=== PATIENT | female | born 1985 | race Caucasian/White ===

== ENCOUNTER 2017-12-23 10:21 | Emergency (ER) | payer MEDICAID ==
[~2017-12-23] VITALS: Ht 157.5 cm; Wt 92.0 kg
[2017-12-23 10:31] VITALS: BP 120/71; PULSE 66; RESP 18; TEMP 98.4; O2SAT 100
--- NOTE | 2017-12-23 10:55 | PD ---
HPI Chief Complaint: Musculoskeletal Complaint Time Seen by Provider: 10:36 Travel History International Travel<30 days: No Contact w/Intl Traveler<30days: No Traveled to known affect area: No History of Present Illness HPI 32-year-old female presents to the emergency department with complaint of left shoulder pain 2 weeks after falling on it. She did not fall on an outstretched arm. She fell directly on her shoulder, injuring it. Denies loss of sensation, decreased range of motion, decreased strength, paresthesias to the affected extremity. Denies fever, vomiting. Pain is worse at night and with certain movements. It is better throughout the day. Rates pain 5/10. Has been taking ibuprofen with good relief of symptoms for symptom management. Describes it as a "pinched nerve" sensation. Allergies to penicillin. No primary care provider. Denies significant past medical history. Has no other medical complaints. No other modifying factors or associated signs and symptoms. PFSH Past Medical History ?: Not Social History Alcohol Use: No Tobacco Use: No Substance Use: No Allergies-Medications (Allergen,Severity, Reaction): Coded Allergies: Penicillins (Verified Allergy, Unknown, 12/23/17) Reported Meds & Prescriptions Reported Meds & Active Scripts Active No Active Prescriptions or Reported Medications Review of Systems Except as stated in HPI: all other systems reviewed are Neg Physical Exam Narrative GENERAL: Well-nourished, well-developed female patient, in no acute distress SKIN: Warm and dry. HEAD: Atraumatic. Normocephalic. EYES: Pupils equal and round. No scleral icterus. No injection or drainage. ENT: Mucosa pink and moist. Airway patent. NECK: Supple. Trachea midline. CARDIOVASCULAR: Regular rate. RESPIRATORY: No accessory muscle use GASTROINTESTINAL: Rounded. MUSCULOSKELETAL: No obvious deformities. No clubbing. No cyanosis. No edema. 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 5/5 strength. Left upper extremity supple and non-tense. 2+ radial pulse and sensory intact. NEUROLOGICAL: Awake and alert. Oriented 3. No obvious cranial nerve deficits. Motor grossly within normal limits. Normal speech. PSYCHIATRIC: Appropriate mood and affect; insight and judgment normal. Data Data Last Documented VS Vital Signs Date Time Temp Pulse Resp B/P (MAP) Pulse Ox O2 Delivery O2 Flow Rate FiO2 12/23/17 10:31 98.4 66 18 120/71 (87) 100 Room Air Orders Orders Shoulder, Complete (>2vws) (12/23/17 10:41) Ed Discharge Order (12/23/17 11:36) MDM Medical Decision Making Medical Screen Exam Complete: Yes Emergency Medical Condition: Yes Medical Record Reviewed: Yes Differential Diagnosis Shoulder strain, shoulder fracture, nerve compression, contusion Narrative Course 32-year-old female with left shoulder injury. Left shoulder x-ray ordered. I offered the patient pain medication and she declined. 1138: Left shoulder x-ray with no acute findings. Discussed x-ray findings with the patient. Instructed patient to follow-up with orthopedics if symptoms persist. Ibuprofen prescribed for home. Instructed patient to follow up with primary care provider. Patient verbalizes understanding and agreement with treatment plan. Patient is medically cleared and stable for discharge. Discussed reasons to return to the emergency department. Patient agrees with treatment plan. The patients vital signs are stable and the patient is stable for outpatient follow-up and treatment. Patient discharged home, stable and in no acute distress. Diagnosis Primary Impression: Injury of left shoulder Qualified Codes: S49.92XA - Unspecified injury of left shoulder and upper arm , initial encounter Referrals: Orthopaedic Surgeon Primary Care Physician Patient Instructions: General Instructions, Shoulder Sprain (ED) Additional Instructions: Tylenol or ibuprofen as needed and as directed to reduce pain and inflammation Rest, ice, and compress extremity to decrease pain and inflammation Avoid aggravating activity; increase activity as tolerated Follow-up with primary care provider Follow-up with orthopedics as needed Return to the emergency department immediately with worsening symptoms Med/Other Pt SpecificInfo: Prescription(s) given Scripts Ibuprofen (Ibuprofen) 800 Mg Tab 800 MG PO Q6HR Y for PAIN, #30 TAB 0 Refills Prov: Edelmira Monge 12/23/17 Disposition: 01 DISCHARGE HOME Condition: Stable Edelmira Monge Dec 23, 2017 10:55
--- NOTE | 2017-12-23 11:07 | RADRPT ---
EXAM DATE/TIME: 12/23/2017 10:44 [facility] COMPARISON: No previous studies available for comparison. INDICATIONS : Fall, left shoulder pain. MEDICAL HISTORY : None. SURGICAL HISTORY : None. ENCOUNTER: Initial ACUITY: 2 weeks PAIN SCORE: 5/10 LOCATION: Left shoulder FINDINGS: Multiple view examination of the left shoulder demonstrates no evidence of fracture or dislocation. The glenohumeral and acromioclavicular joints are maintained. There is normal range of motion betwee n internal and external rotation. Bony mineralization is normal. CONCLUSION: No acute disease. Justice Mascorro MD on December 23, 2017 at 11:05 Board Certified Radiologist. This report was verified electronically.
[2017-12-23] MEDS ORDERED: IBUP1TAB7 PO (11:37)
== END 2017-12-23 11:48 | disposition home or self-care (01) ==
LOC: PHEFT 10:21
DX: S49.92XA Unspecified injury of left shoulder and upper arm, initial encounter (principal); W19.XXXA Unspecified fall, initial encounter
CPT/HCPCS: 73030; 99283